=== PATIENT | male | born 1950 | race Caucasian/White ===

== ENCOUNTER 2017-05-07 12:36 | Emergency (ER) | payer MEDICARE, OTHER ==
[~2017-05-07] VITALS: Ht 170.2 cm; Wt 109.1 kg
[~2017-05-07 12:36] MED LIST: AMOXICILLIN 8751 TAB PO; LIPITOR20 MG PO; MAGNESIUM OXID250 MG PO; MOBIC 7.5MG7.5 MG PO; NORCO 325 MG-51 TAB PO; ZYLOPRIM 300MG300 MG PO
[2017-05-07 12:38] VITALS: BP 133/83; PULSE 87; TEMP 98.7
[2017-05-07] MEDS ORDERED: CALCIUM CARBON650 M2 PO (13:46)
[2017-05-07] MEDS ORDERED: CYMBALTA 30MG30 MG PO (13:48)
[2017-05-07] MEDS ORDERED: [UNRECOGNIZED DRUG - OTHER] PO (13:48)
[2017-05-07] MEDS ORDERED: CARDURA4 MG PO (13:49)
[2017-05-07] MEDS ORDERED: NORVASC 10MG10 MG PO (13:49)
[2017-05-07] MEDS ORDERED: PRINIVIL20 MG PO (13:50)
[2017-05-07] MEDS ORDERED: PROTONIX 40MG T40 MG PO (13:50)
[2017-05-07] MEDS ORDERED: XANAX 0.5MG0.5 MG PO (13:51)
[2017-05-07] MEDS ORDERED: NEURONTIN100 MG/CAP PO (13:51)
== END 2017-05-07 14:28 | disposition home or self-care (01) ==
LOC: COL.ER 12:36
DX: S16.1XXA Strain of muscle, fascia and tendon at neck level, initial encounter (principal); S20.211A Contusion of right front wall of thorax, initial encounter; V43.52XA Car driver injured in collision with other type car in traffic accident, initial encounter; Y92.414 Local residential or business street as the place of occurrence of the external cause; I10 Essential (primary) hypertension; F41.9 Anxiety disorder, unspecified; F32.9 Major depressive disorder, single episode, unspecified